=== PATIENT | male | born 1955 | race Caucasian/White ===

== ENCOUNTER 2016-09-07 21:51 | Emergency (ER) | payer BC, OTHER ==
[~2016-09-07] VITALS: Ht 170.2 cm; Wt 60.0 kg
[2016-09-07 21:56] VITALS: Ht 170.2 cm; Wt 60.0 kg
[2016-09-07] MEDS ORDERED: morphine 4 MG/ML VIAL IV STA (21:56)
[2016-09-07] MEDS ORDERED: KETOROLAC 30 MG INJ IV STA (21:56)
[2016-09-07] MEDS ORDERED: SOD CHLORIDE 0.9% 1,000 ML IV STA (21:56)
[2016-09-07] MEDS ORDERED: LABETALOL HCL 20MG INJ IV ONE ×3 (22:00→23:30)
[2016-09-07 22:38] LABS: ADD SCAN DIFF NO
[2016-09-07 22:40] LABS: BASOPHIL # 0.1 10^3/ul (0.0-0.1); BASOPHILS % 0.9 % (0.0-2.0); EOSINOPHILS # 0.1 10^3/ul (0.0-0.5); EOSINOPHILS % 0.9 % (0.0-7.0); HEMATOCRIT 52.5 % (42.0-52.0); HEMOGLOBIN 18.7 g/dl (14.0-18.0); LYMPHOCYTES # 1.9 10^3/ul (0.8-2.9); LYMPHOCYTES % 14.7 % (15.0-51.0); MEAN CORPUSCULAR HEMOGLOBIN 32.6 pg (29.0-33.0); MEAN CORPUSCULAR HGB CONC 35.6 g/dl (32.0-37.0); MEAN CORPUSCULAR VOLUME 91.6 fl (82.0-101.0); MEAN PLATELET VOLUME 10.9 fl (7.4-10.4); MONOCYTE # 0.8 10^3/ul (0.3-0.9); MONOCYTES % 6.3 % (0.0-11.0); NEUTROPHIL # 9.8 10^3/ul (1.6-7.5); NEUTROPHILS % 76.6 % (39.0-77.0); PLATELET COUNT 212 10^3/UL (140-415); RED BLOOD COUNT 5.73 10^6/ul (4.70-6.10); WHITE BLOOD COUNT 12.8 10^3/ul (4.8-10.8)
[2016-09-07] MEDS ORDERED: SITA50TA2 PO (22:56)
[2016-09-07] MEDS ORDERED: METO-429 PO (22:56)
[2016-09-07] MEDS ORDERED: ASPI-664 PO (22:56)
--- NOTE | 2016-09-07 23:01 | RADRPT ---
PROCEDURE: XR Chest. CLINICAL INDICATION: Chest pain. TECHNIQUE: Single frontal view of the chest. COMPARISON: None. FINDINGS: Cardiomegaly. The lungs are clear. No signs of pleural fluid or pneumothorax are seen. The osseous s tructures and soft tissues are unremarkable. IMPRESSION: No evidence for active cardiopulmonary disease. RPTAT: [facility] Physician [facility] Date Time Electronically viewed and signed by Gauri Pal Physician on 09/07/2016 23:01 RS/
[2016-09-07] MEDS ORDERED: AMPICILLIN/SULB 3 GM/NS (PMX) 100 ML IVPB ONE (23:30)
[2016-09-07] MEDS ORDERED: AMLODIPINE 10 MG TAB PO ONE (23:30)
[2016-09-07 23:35] LABS: INR 1.08; PARTIAL THROMBOPLASTIN TIME 24.6 Sec (25.0-35.0); PT RATIO 1.1
[2016-09-07 23:39] LABS: ANION GAP 11 (8-16); BLOOD UREA NITROGEN 12 mg/dl (7-20); CALCIUM 9.3 mg/dl (8.4-10.2); CARBON DIOXIDE 23 mmol/L (21-31); CHLORIDE 102 mmol/L (97-110); CREATININE 0.81 mg/dl (0.61-1.24); GLUCOSE 323 mg/dl (70-220); POTASSIUM 3.9 mmol/L (3.5-5.1); SODIUM 132 mmol/L (135-144)
[2016-09-07 23:51] LABS: TROPONIN-I < 0.012 ng/ml (0.00-0.12)
[2016-09-07] MEDS ORDERED: IOHEXOL 300MG/ML 150 ML BTL ONE (23:54)
[2016-09-07] MEDS ORDERED: SOD CHLORIDE 0.9% 100 ML ONE (23:54)
--- NOTE | 2016-09-08 00:37 | RADRPT ---
PROCEDURE: CT Neck with contrast. CLINICAL INDICATION: Facial/dental pain, suspected the tissue infection. TECHNIQUE: The study was performed utilizing a multislice multidetector CT scanner. Direct spiral 1 mm axial sections were obtained through the neck with the use of with the use of intravenous contr ast material. 100 cc of Omnipaque 300 was utilized. Coronal and sagittal as well as maximal intens ity projection reformations were obtained. The images were reviewed on a PACS workstation. RADIATION DOSE: CTDIvol: 8.7 mGyDLP: 256.4 mGy-cm COMPARISON: No prior studies are available for comparison. FINDINGS: The nasopharynx and oropharynx are normal in appearance. There is a multi septated, peripherally en hancing lesion involving the inferior aspect of the left lingual tonsil (axial series image 42), shazia suring 14 x 11 mm. There is mild thickening of the left sided Waldeyer's ring as well as the left p alatine tonsil. There is also a subtle area of hypo enhancement involving the left palatine tonsil ( axial series image 29), measuring 8 mm. There is a slightly prominent level II submandibular lymph n ode on the left measuring 14 x 9 mm (axial series image 37). The larynx is normal in appearance. The parotid, submandibular and thyroid glands are normal in saad earance. No enlarged cervical lymph nodes are seen. The vascular structures are normal. The paran anca sinuses and orbits are normal. Limited visualization of the intracranial contents is unremarka ble. There are mild degenerative changes of the cervical spine. The lung apices are normal in appe arance. No significant periodontal disease is seen. IMPRESSION: 1. Multi septated, peripherally enhancing lesion involving the inferior aspect of the left lingual tonsil measuring 49 11 mm, which is nonspecific. There is also mild thickening of the left sided wa ll there is ring as well as the left palatine tonsil. These findings are nonspecific, may be relate d to etiologies such as peripherally enhancing tonsillar abscess versus tonsillar neoplasm. Direct visualization, ENT consultation as well as MRI of the neck soft tissues would be helpful for further evaluation. 2. No significant lymphadenopathy or abnormal fluid collection. RPTAT: [facility]AS .Carlos Sauer MD, Date Time Electronically viewed and signed by .Carlos Sauer MD, on 09/08/2016 00:37 .S/
[2016-09-08] MEDS ORDERED: NAPR-688 PO (01:34)
[2016-09-08] MEDS ORDERED: AMOX1TAB10 PO (01:34)
[2016-09-08] MEDS ORDERED: HYDR-906 PO (01:34)
[2016-09-08] MEDS ORDERED: AMLO-147 PO (01:36)
[2016-09-08 01:40] VITALS: BP 146/89; PULSE 77; RESP 18
--- NOTE | 2016-09-08 03:22 | ERD ---
ER Documentation Chief Complaint Date/Time DATE: 09/08/16 TIME: 03:10 Chief Complaint tonsil/neck pain x 1 day HPI 60-year-old male presents emergency room for tooth pain radiating to his neck up to his left ear for the last day. He has not seen his dentist yet. Brought in by paramedics who noted that his blood pressure is extremely high with a systolic near 250 and a diastolic at 120. States that he takes metoprolol 50 mg once a day but is not sure if it is extended release or not. He does have diabetes as well. Feels very uncomfortable but does not say that he has specific chest pain or shortness of breath. ROS All systems reviewed and are negative except as per history of present illness. Medications Home Meds Active Scripts Amlodipine Besylate* (Amlodipine Besylate*) 10 Mg Tablet, 5 MG PO DAILY, #14 TAB Prov:MOOSE BAILEY DO 09/08/16 Amoxicillin/Potassium Clav (Amox-Clav 875-125 mg Tablet) 875-125 mg Tab, 1 TAB PO BID, #20 TAB Prov:MOOSE BAILEY DO 09/08/16 Naproxen* (Naproxen*) 500 Mg Tablet, 500 MG PO BID, #20 TAB Prov:MOOSE BAILEY DO 09/08/16 Hydrocodone/Acetaminophen ([place] 5-325 Tablet) 1 Each Tablet, 1 EACH PO Q6, #14 TAB Prov:LYNNMOOSE DO 09/08/16 Reported Medications Metoprolol Tartrate* (Lopressor*) 50 Mg Tab, 50 MG PO BID, #60 TAB 09/07/16 Aspirin* (Aspirin* EC) 81 Mg Tablet.dr, 81 MG PO DAILY, TAB 09/07/16 Sitagliptin* (Januvia*) Unknown Strength Tablet, PO DAILY, #30 TAB 09/07/16 Allergies Allergies: Coded Allergies: No Known Allergy (Unverified , 09/07/16) PMhx/Soc History of Surgery: Yes (Hernia Repair) Hx Cardiac Disorders: Yes (HTN) Hx Miscellaneous Medical Probl: Yes (DM) Hx Alcohol Use: Yes Hx Substance Use: No Hx Tobacco Use: Yes Smoking Status: Heavy tobacco smoker Physical Exam Vitals Vital Signs Date Time Temp Pulse Resp B/P Pulse Ox O2 Delivery O2 Flow Rate FiO2 09/08/16 01:40 77 18 146/89 95 Room Air 09/07/16 23:21 76 19 180/100 97 Room Air 09/07/16 22:46 81 16 204/108 96 Room Air 09/07/16 22:20 93 16 207/140 95 Nasal Cannula 2.0 09/07/16 22:08 Nasal Cannula 2 09/07/16 21:56 98.3 112 19 250/120 99 Physical Exam Const: [] Moderate distress Head: Atraumatic Eyes: Normal Conjunctiva ENT: Normal External Ears, Nose and Mouth. Poor dentition along left side mouth, oropharynx without mild swelling without tonsillar enlargement or exudate Neck: Full range of motion..~ No meningismus. Resp: Clear to auscultation bilaterally Cardio: Regular rate and rhythm, no murmurs Abd: Soft, non tender, non distended. Normal bowel sounds Skin: No petechiae or rashes Back: No midline or flank tenderness Ext: No cyanosis, or edema, distal pulses intact all 4 extreme Neur: Awake and alert and oriented 3, no focal deficits Psych: Normal Mood and Affect Result Diagram: 09/07/16 2220 09/07/16 2250 Results 24 hrs Laboratory Tests Test 09/07/16 22:20 09/07/16 22:50 White Blood Count 12.810^3/ul Red Blood Count 5.7310^6/ul Hemoglobin 18.7g/dl Hematocrit 52.5% Mean Corpuscular Volume 91.6fl Mean Corpuscular Hemoglobin 32.6pg Mean Corpuscular Hemoglobin Concent 35.6g/dl Red Cell Distribution Width 13.0% Platelet Count 91186^3/UL Mean Platelet Volume 10.9fl Neutrophils % 76.6% Lymphocytes % 14.7% Monocytes % 6.3% Eosinophils % 0.9% Basophils % 0.9% Nucleated Red Blood Cells % 0.0/100WBC Neutrophils # 9.810^3/ul Lymphocytes # 1.910^3/ul Monocytes # 0.810^3/ul Eosinophils # 0.110^3/ul Basophils # 0.110^3/ul Nucleated Red Blood Cells # 0.010^3/ul Prothrombin Time 14.0Sec Prothrombin Time Ratio 1.1 INR International Normalized Ratio 1.08 Activated Partial Thromboplast Time 24.6Sec Sodium Level 132mmol/L Potassium Level 3.9mmol/L Chloride Level 102mmol/L Carbon Dioxide Level 23mmol/L Anion Gap 11 Blood Urea Nitrogen 12mg/dl Creatinine 0.81mg/dl Glucose Level 323mg/dl Calcium Level 9.3mg/dl Troponin I < 0.012ng/ml Current Medications Medications (Trade) Dose Ordered Sig/Rosa Route PRN Reason Start Time Stop Time Status Last Admin Dose Admin Sodium Chloride (NS) 1,000 ml @ 1,000 mls/hr Q1H STAT IV 09/07/16 21:56 09/07/16 22:55 DC 09/07/16 22:19 Morphine Sulfate (morphine) 4 mg ONCE STAT IV 09/07/16 21:56 09/07/16 22:00 DC 09/07/16 22:20 Ketorolac Tromethamine (Toradol) 30 mg ONCE STAT IV 09/07/16 21:56 09/07/16 22:00 DC 09/07/16 22:48 Labetalol HCl 20 mg 20 mg ONCE ONCE IV 09/07/16 22:00 09/07/16 23:26 DC 09/07/16 22:19 Ampicillin Sodium/ Sulbactam Sodium (Unasyn 3gm/NS (Pmx)) 100 ml @ 100 mls/hr ONCE ONCE IVPB 09/07/16 23:30 09/08/16 00:29 DC 09/07/16 23:55 Labetalol HCl (Labetalol) 40 mg ONCE ONCE IV 09/07/16 23:30 09/07/16 23:30 DC Amlodipine Besylate (Norvasc) 10 mg ONCE ONCE PO 09/07/16 23:30 09/07/16 23:31 DC 09/07/16 23:45 Labetalol HCl 20 mg 20 mg ONCE ONCE IV 09/07/16 23:30 09/07/16 23:31 DC 09/07/16 23:33 Sodium Chloride (NS) 100 ml @ ud STK-MED ONCE .ROUTE 09/07/16 23:54 09/07/16 23:55 DC 09/08/16 00:15 Iohexol (Omnipaque 300mg/ ml) 150 ml STK-MED ONCE .ROUTE 09/07/16 23:54 09/07/16 23:55 DC 09/08/16 00:15 Procedures/MDM Patient with dental infection and tonsillitis as well as hypertensive crisis. Patient's blood pressure was extremely high. Patient required 2 doses of 20 mg labetalol to lower the pressure to acceptable level. His hypertension persisted even after his pain was completely controlled. He is also given amlodipine p.o. but he stated he did not want to remain in the hospital, in order to prevent any rebound hypertension. He was monitored for another 2 hours after his final dose of labetalol in order to make sure that his blood pressure would not drop too low or rebound quickly. Soft tissue neck CT reveals nonspecific changes in the tonsils consistent with possible acute infection versus other. Patient was also dehydrated and hyperglycemic. He had hemoconcentration on his CBC. He was given a liter of normal saline. He was also given Unasyn for his dental and throat infection. He was given morphine and Toradol which did relieve his pain. No signs of renal dysfunction. Patient does have inferolateral inverted T waves however has no chest pain shortness of breath or any other cardiac symptoms. Negative troponin after 1 day of symptoms per no signs of airway compromise or any need for acute ENT management. I am going to discharge him with Augmentin as well as naproxen and [place]. I am also discharging him with 5 mg amlodipine tab to be taken daily instructions to obtain a blood pressure diary to take to his primary care physician I am recommending follow-up with 1-2 days as well as an ENT referral. Printed his CAT scan report and give him a disc so that an ENT doctor can pull it up on his computer prevent further need for a repeat CT scan. Also included is a copy of his EKG. Also instructed him to follow-up his primary care doctor and possibly a social media campaign manager and obtain an outpatient echocardiogram because of EKG changes. Chest x-ray interpretation: I see no acute process, no wide mediastinum, no infiltrate, no pneumo thorax, no fractures CT soft tissue neck interpretation: Tonsillar lesions which are nonspecific but could indicate infection versus other including neoplasm. No definite fluid collection. EKG interpretation: Normal sinus rhythm rate of 81, ST depressions in inferolateral leads suspicious for some possible ischemia. QT of 508, normal axis Critical care time 39 minutes: This includes treatment of hypertensive crisis in patient with dangerously high blood pressure and some ischemic changes on EKG , use of multiple doses of vasoactive medication labetalol, multiple visits patient's bedside to reassess his status, discussion with family and patient, careful fluid administration, antibiotic administration, treatment of hyperglycemia and dehydration, this does not include any billable procedures. Departure Diagnosis: Primary Impression: Hypertensive crisis Additional Impressions: Acute bacterial tonsillitis Dental infection Hyperglycemia due to type 2 diabetes mellitus Dehydration Condition: Stable Patient Instructions: Dental Cavity, Hypertension, Established, Out Of Control Additional Instructions: Call your primary care doctor TOMORROW for an appointment to see an ENT doctor within the next week. See the doctor sooner or return here if your condition worsens before your appointment time. MOOSE BAILEY DO Sep 08, 2016 03:21
== END 2016-09-08 01:40 | disposition home or self-care (01) ==
LOC: E/R 21:51
DX: I16.9 Hypertensive crisis, unspecified (principal); F17.210 Nicotine dependence, cigarettes, uncomplicated; J03.90 Acute tonsillitis, unspecified; K04.6 Periapical abscess with sinus; E11.65 Type 2 diabetes mellitus with hyperglycemia; E86.0 Dehydration; I10 Essential (primary) hypertension; R07.9 Chest pain, unspecified; Z79.82 Long term (current) use of aspirin
CPT/HCPCS: 36415; 70490; 71010; 80048; 84484; 85025; 85610; 85730; 93005; 96374; 96375; 96376; J0295; J1885; J2270; J7030; Q9967; Z7502; Z7610